=== PATIENT | male | born 1950 | race Caucasian/White ===

== ENCOUNTER → 2019-01-31 | Outpatient (CLI) | payer MEDICARE ==
[~2019-01-31] MED LIST: 0.9 % SODIUM CHLORIDE 10 ML DISP.SYRIN. ID ONE; ASCO100065 PO; ASPI-630 PO; GABA300C18 PO; GADOBUTROL 7.5 MMOL/7.5 ML VIAL INT ART ONE; GLUCOSAMINE 1,1 EACH PO; IOHEXOL 300 MG/ML 50 ML VIAL. INT ART ONE; LEVO50TA5 PO; LIDOCAINE 1% Multi-Dose 20 ML VIAL. ID ONE; LOSA1TAB22 PO; MELO15TA6 PO; METH5TAB2 PO; MULT-245 PO; OMEG1CAP43 PO; SIMV40TA3 PO
--- NOTE | 2019-01-31 16:22 | KCIC ---
MRI arthrogram of the left shoulder HISTORY: Left shoulder pain for 6 months, decreased range of motion. TECHNIQUE: Routine 4 plane sequences obtained after intra-articular contrast injection. FINDINGS: Mild motion degradation. Acromioclavicular joint is degenerative, with undersurface osteophytes and mild mass effect. Partial-thickness undersurface tear of the supraspinatus tendon, extending through the anterior infraspinatus tendon. At its greatest, anteriorly, this involves 80% of the tendon depth. There is no complete through and through bursal surface rupture or retraction. Subscapularis tendon appears intact. No significant subdeltoid bursal fluid or contrast. Mild contrast accumulation within the superior labrum compatible with a mild degenerative tear. No acute articular cartilage defect. Mild biceps tendinosis with partial tear. No bone destruction or acute fracture. No acute soft tissue abnormality. IMPRESSION: 1. Broad partial thickness deep undersurface tear of the supraspinatus and infraspinatus tendon. 2. Degenerative tear of the superior labrum. 3. Biceps tendinosis with partial tear. Electronically signed by: Perico Martinez MD (01/31/2019 4:19 PM) [facility] [id number]
--- NOTE | 2019-01-31 17:20 | KCIC ---
PROCEDURE: Left shoulder injection using fluoroscopic guidance, prior to MR. HISTORY: Shoulder pain. TECHNIQUE: The procedure was explained to the patient as were potential risks, including among others infection, bleeding or allergic reaction. All questions were answered. Informed written and verbal consent was obtained. The shoulder was prepped and draped in the usual sterile manner. Following administration of local anesthetic, a 22-gauge needle was advanced into the anterior shoulder. Following negative aspiration, 12 cc of a solution of 5cc Omnipaque-300 contrast, 5 cc 1% lidocaine, 10 cc normal saline, and 0.1 cc gadolinium was injected without difficulty. The needle was removed. There was good hemostasis at the injection site. The patient left in stable condition without immediate complication. A single spot image is obtained. FLUOROSCOPY TIME:?18 seconds Electronically signed by: Perico Martinez MD (01/31/2019 5:17 PM) [id number]
== END | disposition home or self-care (01) ==
LOC: KCIC 10:55
PROVIDERS: ATTEND Orthopaedic Surgery
DX: S46.012A Strain of muscle(s) and tendon(s) of the rotator cuff of left shoulder, initial encounter (principal); S43.402A Unspecified sprain of left shoulder joint, initial encounter; M25.712 Osteophyte, left shoulder; I10 Essential (primary) hypertension; Z79.01 Long term (current) use of anticoagulants; X58.XXXA Exposure to other specified factors, initial encounter; Y93.89 Activity, other specified; Y92.89 Other specified places as the place of occurrence of the external cause; Y99.8 Other external cause status
CPT/HCPCS: 73040; 73222; A9585; Q9967

== ENCOUNTER → 2020-03-20 | Outpatient (CLI) | payer MEDICARE ==
[~2020-03-20] MED LIST changes: -0.9 % SODIUM CHLORIDE 10 ML DISP.SYRIN. ID ONE; -GADOBUTROL 7.5 MMOL/7.5 ML VIAL INT ART ONE; -IOHEXOL 300 MG/ML 50 ML VIAL. INT ART ONE; -LIDOCAINE 1% Multi-Dose 20 ML VIAL. ID ONE; +SIMV40TA18 PO; -SIMV40TA3 PO
--- NOTE | 2020-03-20 13:50 | KCIC ---
EXAM: Orbits, single view. HISTORY: MRI foreign body screening. COMPARISON: None. FINDINGS: A single frontal view of the orbits obtained. There is no metallic foreign body to preclude MRI. There is dental amalgam. IMPRESSION: No foreign body to preclude MRI. Electronically signed by: Margy Saxena MD (03/20/2020 1:47 PM) [id number]
--- NOTE | 2020-03-20 15:08 | KCIC ---
EXAM: Brain MRI without contrast. HISTORY: Previous aorta dissection. Stroke. TECHNIQUE: Multiplanar, multisequence magnetic resonance imaging of the brain was performed without contrast. COMPARISON: None. FINDINGS: There is a 2.6 cm T2/FLAIR hyperintense lesion with peripheral increased signal on diffusion-weighted images and gyriform T1 hyperintensity within the medial right occipital lobe, the appearance of which favors a late subacute infarct with laminar necrosis or microhemorrhage. There is also a tiny focus of suspected late subacute infarction with superimposed microhemorrhage within the right centrum semiovale. There is a tiny focus of chronic microhemorrhage within the left centrum semiovale. There is a small chronic infarct within the right centrum semiovale. There are extensive areas of signal change throughout the cerebral white matter, likely due to chronic small vessel disease. There are normal flow voids within the cerebral vessels. The orbits are unremarkable. There are maxillary sinus mucous retention cysts. The mastoid air cells are clear. There is no suspicious calvarial lesion. IMPRESSION: 1. Signal abnormality within the medial right occipital lobe likely due to a late subacute infarct with associated laminar necrosis or microhemorrhage and tiny focus of suspected late subacute infarction and/or chronic microhemorrhage within the right centrum semiovale. 2. Tiny chronic infarct within the right centrum semiovale and focus of chronic microhemorrhage within the left centrum semiovale. 3. Bilateral cerebral white matter changes, likely due to chronic small vessel disease. Electronically signed by: Margy Saxena MD (03/20/2020 3:05 PM) [id number]
== END | disposition home or self-care (01) ==
LOC: KCIC MRI 12:30
PROVIDERS: ATTEND Psychiatry & Neurology Neurology
DX: I63.89 Other cerebral infarction (principal); J34.1 Cyst and mucocele of nose and nasal sinus
CPT/HCPCS: 70030; 70551